=== PATIENT | male | born 1950 | race Caucasian/White ===

== ENCOUNTER 2018-03-10 11:00 | Inpatient (IN) | payer OTHER ==
[2018-03-10] MEDS: SOD CHLORIDE 0.9% 1,000 ML IV (11:32)
[2018-03-10 12:08] LABS: ADD MAN DIFF? NO
[2018-03-10 12:13] LABS: ADD UMIC YES; UR ASCORBIC ACID NEGATIVE (NEGATIVE); UR BILIRUBIN (Dip) NEGATIVE (NEGATIVE); UR BLOOD (Dip) NEGATIVE (NEGATIVE); UR CLARITY CLEAR (CLEAR); UR COLOR YELLOW (YELLOW); UR GLUCOSE (Dip) 3+ mg/dL (NEGATIVE); UR KETONES (Dip) TRACE mg/dL (NEGATIVE); UR LEUKOCYTE ESTERASE (Dip) NEGATIVE Leu/ul (NEGATIVE); UR MUCUS FEW /HPF (NONE SEEN); UR NITRITE (Dip) NEGATIVE (NEGATIVE); UR RBC 5 /HPF (0-5); UR SPECIFIC GRAVITY (Dip) 1.023 (1.003-1.030); UR TOTAL PROTEIN (Dip) 2+ mg/dl (NEGATIVE); UR UROBILINOGEN (Dip) NEGATIVE (NEGATIVE); UR WBC 1 /HPF (0-5)
[2018-03-10 12:14] LABS: WHITE BLOOD COUNT 10.2 10^3/ul (4.8-10.8)
[2018-03-10 12:14] LABS: BASOPHIL # 0.1 10^3/ul (0.0-0.1); BASOPHILS % 0.5 % (0.0-2.0); EOSINOPHILS % 0.3 % (0.0-7.0); HEMATOCRIT 35.7 % (42.0-52.0); HEMOGLOBIN 12.1 g/dl (14.0-18.0); LYMPHOCYTES # 0.9 10^3/ul (0.8-2.9); LYMPHOCYTES % 9.1 % (15.0-51.0); MEAN CORPUSCULAR HEMOGLOBIN 30.6 pg (29.0-33.0); MEAN CORPUSCULAR HGB CONC 33.9 g/dl (32.0-37.0); MEAN CORPUSCULAR VOLUME 90.4 fl (82.0-101.0); MEAN PLATELET VOLUME 9.3 fl (7.4-10.4); MONOCYTE # 0.2 10^3/ul (0.3-0.9); MONOCYTES % 2.4 % (0.0-11.0); NEUTROPHIL # 8.9 10^3/ul (1.6-7.5); NEUTROPHILS % 87.2 % (39.0-77.0); PLATELET COUNT 274 10^3/UL (140-415); RED BLOOD COUNT 3.95 10^6/ul (4.70-6.10)
[2018-03-10 12:27] LABS: ALANINE AMINOTRANSFERASE 27 IU/L (13-69); ALBUMIN 3.8 g/dl (3.3-4.9); ALBUMIN/GLOBULIN RATIO 1.22; ALKALINE PHOSPHATASE 58 IU/L (42-121); ANION GAP 13 (8-16); ASPARTATE AMINO TRANSFERASE 22 IU/L (15-46); BILIRUBIN,INDIRECT 0.6 mg/dl (0-1.1); BILIRUBIN,TOTAL 0.6 mg/dl (0.2-1.3); BLOOD UREA NITROGEN 22 mg/dl (7-20); CALCIUM 8.8 mg/dl (8.4-10.2); CARBON DIOXIDE 30 mmol/L (21-31); CHLORIDE 105 mmol/L (97-110); CREATININE 0.83 mg/dl (0.61-1.24); GLUCOSE 256 mg/dl (70-220); LIPASE 76 U/L (23-300); POTASSIUM 3.9 mmol/L (3.5-5.1); SODIUM 144 mmol/L (135-144); TOTAL PROTEIN 6.9 g/dl (6.1-8.1)
[2018-03-10] MEDS: ONDANSETRON 4 MG INJ IV ×2 (12:30→20:27)
[2018-03-10] MEDS: morphine 4 MG/ML VIAL IV (12:30)
[2018-03-10 12:39] LABS: TROPONIN-I < 0.012 ng/ml (0.00-0.12)
[2018-03-10 12:56] LABS: PROTIME 24.1 Sec (11.9-14.9); PT RATIO 1.9
[2018-03-10 12:57] LABS: PARTIAL THROMBOPLASTIN TIME 35.4 Sec (25.0-35.0)
[2018-03-10] MEDS ORDERED: MAGNESIUM HYDROXIDE 30ML CUP PO (14:30)
[2018-03-10] MEDS ORDERED: DOCUSATE SODIUM 100 MG CAP PO (14:30)
[2018-03-10] MEDS ORDERED: NITROGLYCERIN (SL) 0.4 MG TAB SL (14:30)
[2018-03-10] MEDS ORDERED: LORAZEPAM 2 MG INJ IV (14:30)
[2018-03-10] MEDS ORDERED: NACL 0.9% 3 ML SYG IV (14:30)
[2018-03-10] MEDS ORDERED: ACETAMINOPHEN 325 MG TAB PO (14:30)
[2018-03-10] MEDS ORDERED: ALBUTEROL/IPRATROPIUM (NEB) 3 ML AMP HHN (14:30)
[2018-03-10] MEDS ORDERED: HYDROCODONE/APAP (5/325) TAB PO (14:30)
[2018-03-10] MEDS ORDERED: NA PHOSPHATE/BIPHOS 133 ML ENEMA PR (14:30)
[2018-03-10] MEDS ORDERED: GLUCOSE GEL 15 GRAM TUBE BUCCAL (15:00)
[2018-03-10] MEDS ORDERED: GLUCOSE GEL 15 GRAM TUBE PO ×2 (15:00)
[2018-03-10] MEDS ORDERED: GLUCAGON 1 MG INJ IM (15:00)
[2018-03-10] MEDS ORDERED: DEXTROSE 50% 50 ML SYRINGE IV ×2 (15:00)
[2018-03-10 16:07] LABS: FREE T4 (FREE THYROXINE) 0.92 ng/dl (0.78-2.44)
[2018-03-10] MEDS: SOD CHLORIDE 0.45% 1,000 ML IV (16:32)
[2018-03-10] MEDS: INSULIN ASPART [NOVOLOG] 3 ML PEN SC ×2 (17:01→22:46)
[2018-03-10] MEDS: hydrALAzine 20 MG INJ IV (22:46)
[2018-03-10] MEDS: morphine 2 MG INJ IV (22:48)
[2018-03-11] MEDS: ACCU-CHEK XX (00:29)
[2018-03-11] MEDS: DEXAMETHASONE 4 MG/ML 1 ML INJ IV ×5 (01:01→23:42)
[2018-03-11] MEDS: INSULIN ASPART [NOVOLOG] 3 ML PEN SC ×5 (01:15→17:41)
[2018-03-11] MEDS: SOD CHLORIDE 0.45% 1,000 ML IV ×2 (03:50→17:10)
[2018-03-11 05:23] LABS: ADD MAN DIFF? NO
[2018-03-11 05:32] LABS: BASOPHILS % 0.2 % (0.0-2.0); EOSINOPHILS % 0.2 % (0.0-7.0); HEMATOCRIT 36.5 % (42.0-52.0); HEMOGLOBIN 12.2 g/dl (14.0-18.0); LYMPHOCYTES # 0.9 10^3/ul (0.8-2.9); LYMPHOCYTES % 9.8 % (15.0-51.0); MEAN CORPUSCULAR HEMOGLOBIN 30.3 pg (29.0-33.0); MEAN CORPUSCULAR HGB CONC 33.4 g/dl (32.0-37.0); MEAN CORPUSCULAR VOLUME 90.6 fl (82.0-101.0); MEAN PLATELET VOLUME 9.2 fl (7.4-10.4); MONOCYTE # 0.1 10^3/ul (0.3-0.9); MONOCYTES % 1.3 % (0.0-11.0); NEUTROPHIL # 7.7 10^3/ul (1.6-7.5); PLATELET COUNT 267 10^3/UL (140-415); RED BLOOD COUNT 4.03 10^6/ul (4.70-6.10)
[2018-03-11 05:32] LABS: WHITE BLOOD COUNT 8.8 10^3/ul (4.8-10.8)
[2018-03-11 05:50] LABS: CHOLESTEROL 160 mg/dl (100-200)
[2018-03-11 05:50] LABS: CHOL/HDL RATIO 3.8 RATIO; HDL CHOLESTEROL 42 mg/dl (30-78); LDL CHOLESTEROL,CALCULATED 103 mg/dl; TRIGLYCERIDES 75 mg/dl (0-149)
[2018-03-11 05:56] LABS: INR 1.97; PROTIME 22.9 Sec (11.9-14.9); PT RATIO 1.8
[2018-03-11 05:57] LABS: ANION GAP 10 (8-16); BLOOD UREA NITROGEN 19 mg/dl (7-20); CALCIUM 8.5 mg/dl (8.4-10.2); CARBON DIOXIDE 32 mmol/L (21-31); CHLORIDE 104 mmol/L (97-110); CREATININE 0.82 mg/dl (0.61-1.24); GLUCOSE 212 mg/dl (70-220); MAGNESIUM 1.9 mg/dl (1.7-2.5); PARTIAL THROMBOPLASTIN TIME 32.5 Sec (25.0-35.0); PHOSPHORUS 2.6 mg/dl (2.5-4.9); POTASSIUM 4.1 mmol/L (3.5-5.1); SODIUM 142 mmol/L (135-144)
[2018-03-11] MEDS: PANTOPRAZOLE 40 MG INJ IV (06:01)
[2018-03-11] MEDS: ONDANSETRON 4 MG INJ IV (08:22)
[2018-03-11] MEDS: morphine 2 MG INJ IV (08:22)
[2018-03-11] MEDS: LEVETIRACETAM 500 MG (PMX) 100 ML IVPB ×2 (08:32→20:38)
[2018-03-11 09:57] LABS: HEMOGLOBIN A1C 7.8 % (0-5.9)
[2018-03-11] MEDS: INSULIN GLARGINE [LANtus] 3 ML PEN SC (10:30)
[2018-03-11] MEDS: AMLODIPINE 5 MG TAB PO (10:59)
[2018-03-11] MEDS: WARFARIN 5 MG TAB PO (17:38)
[2018-03-11] MEDS: SOD CHLORIDE 0.9% 100 ML (18:27)
[2018-03-11] MEDS: IOHEXOL 300MG/ML 150 ML BTL (18:27)
[2018-03-11] MEDS: Insulin NOVOLOG SS MILD Algorithm (SS with meals and bedtime) SC (20:54)
[2018-03-11] MEDS: METOPROLOL 25 MG TAB PO (20:56)
[2018-03-11] MEDS ORDERED: INSULIN ASPART [NOVOLOG] 3 ML PEN SC (21:00)
[2018-03-12] MEDS: ACCUCHECK AT 2AM (Patients on SS coverage) XX (02:06)
[2018-03-12] MEDS: DEXAMETHASONE 4 MG/ML 1 ML INJ IV ×2 (05:23→12:03)
[2018-03-12] MEDS: PANTOPRAZOLE 40 MG INJ IV (05:23)
[2018-03-12 06:33] LABS: ANION GAP 14 (8-16); BLOOD UREA NITROGEN 27 mg/dl (7-20); CALCIUM 8.3 mg/dl (8.4-10.2); CARBON DIOXIDE 25 mmol/L (21-31); CHLORIDE 103 mmol/L (97-110); CREATININE 0.87 mg/dl (0.61-1.24); GLUCOSE 280 mg/dl (70-220); POTASSIUM 3.9 mmol/L (3.5-5.1); SODIUM 138 mmol/L (135-144)
[2018-03-12] MEDS: LEVETIRACETAM 500 MG (PMX) 100 ML IVPB (08:06)
[2018-03-12] MEDS: METOPROLOL 25 MG TAB PO (08:09)
[2018-03-12] MEDS: AMLODIPINE 5 MG TAB PO (08:09)
[2018-03-12] MEDS: Insulin NOVOLOG SS MILD Algorithm (SS with meals and bedtime) SC ×2 (08:13→12:04)
[2018-03-12] MEDS: INSULIN GLARGINE [LANtus] 3 ML PEN SC (08:26)
== END 2018-03-12 14:10 | disposition home or self-care (01) | DRG 54 ==
LOC: MS2 03-11 12:10 → E/R 11:00 → ICU 12:43
PROVIDERS: Hospitalist
DX: D32.0 Benign neoplasm of cerebral meninges (principal); G93.6 Cerebral edema; E09.9 Drug or chemical induced diabetes mellitus without complications; E08.9 Diabetes mellitus due to underlying condition without complications; I10 Essential (primary) hypertension; Z79.01 Long term (current) use of anticoagulants
CPT/HCPCS: 36415; 70450; 70551; 71045; 71260; 74176; 80048; 80053; 80061; 81001; 82962; 83036; 83690; 83735; 84100; 84439; 84443; 84484; 85025; 85610; 85730; 87081; 93005; 96372; 96374; 96375; 97116; 97161; 99291-25

== ENCOUNTER 2018-12-03 14:27 | Inpatient (IN) | payer OTHER ==
[2018-12-03 15:04] LABS: ADD MAN DIFF? NO
[2018-12-03 15:06] LABS: BASOPHIL # 0.1 10^3/ul (0.0-0.1); BASOPHILS % 0.4 % (0.0-2.0); EOSINOPHILS # 0.1 10^3/ul (0.0-0.5); EOSINOPHILS % 1.2 % (0.0-7.0); HEMATOCRIT 40.1 % (42.0-52.0); HEMOGLOBIN 13.4 g/dl (14.0-18.0); LYMPHOCYTES # 1.5 10^3/ul (0.8-2.9); LYMPHOCYTES % 13.4 % (15.0-51.0); MEAN CORPUSCULAR HEMOGLOBIN 29.2 pg (29.0-33.0); MEAN CORPUSCULAR HGB CONC 33.4 g/dl (32.0-37.0); MEAN CORPUSCULAR VOLUME 87.4 fl (82.0-101.0); MEAN PLATELET VOLUME 8.9 fl (7.4-10.4); MONOCYTE # 0.4 10^3/ul (0.3-0.9); MONOCYTES % 3.6 % (0.0-11.0); NEUTROPHIL # 9.1 10^3/ul (1.6-7.5); NEUTROPHILS % 81.1 % (39.0-77.0); PLATELET COUNT 320 10^3/UL (140-415); RED BLOOD COUNT 4.59 10^6/ul (4.70-6.10); RED CELL DISTRIBUTION WIDTH 12.1 % (11.5-14.5)
[2018-12-03 15:06] LABS: WHITE BLOOD COUNT 11.2 10^3/ul (4.8-10.8)
[2018-12-03] MEDS: SOD CHLORIDE 0.9% 500 ML IV (15:07)
[2018-12-03] MEDS: ACETAMINOPHEN 500 MG TAB PO (15:07)
[2018-12-03 15:22] LABS: ANION GAP 11 (5-13); BLOOD UREA NITROGEN 25 mg/dl (7-20); CARBON DIOXIDE 32 mmol/L (21-31); CHLORIDE 98 mmol/L (97-110); CREATININE 1.05 mg/dl (0.61-1.24); Estimated GFR > 60 mL/min (>60); GLUCOSE 294 mg/dl (70-220); POTASSIUM 4.5 mmol/L (3.5-5.1); SODIUM 141 mmol/L (135-144)
[2018-12-03 15:25] LABS: INR 0.85; PROTIME 11.7 Sec (11.9-14.9); PT RATIO 0.9
[2018-12-03 15:26] LABS: PARTIAL THROMBOPLASTIN TIME 24.5 Sec (23.0-35.0)
[2018-12-03] MEDS ORDERED: ONDANSETRON 4 MG INJ IV (16:00)
[2018-12-03] MEDS ORDERED: ACETAMINOPHEN 325 MG TAB PO ×2 (16:00→16:30)
[2018-12-03] MEDS ORDERED: NACL 0.9% 3 ML SYG IV (16:30)
[2018-12-03] MEDS ORDERED: morphine 2 MG INJ IV (16:30)
[2018-12-03] MEDS ORDERED: DOCUSATE SODIUM 100 MG CAP PO (16:30)
[2018-12-03] MEDS ORDERED: ZOLPIDEM 5 MG TAB PO (16:30)
[2018-12-03] MEDS ORDERED: DEXTROSE 50% 50 ML SYRINGE IV ×2 (17:30)
[2018-12-03] MEDS ORDERED: GLUCOSE GEL 15 GRAM TUBE BUCCAL (17:30)
[2018-12-03] MEDS ORDERED: GLUCOSE GEL 15 GRAM TUBE PO ×2 (17:30)
[2018-12-03] MEDS ORDERED: GLUCAGON 1 MG INJ IM (17:30)
[2018-12-03] MEDS: INSULIN ASPART [NOVOLOG] 3 ML PEN SC ×2 (18:17→20:26)
[2018-12-03] MEDS: HYDROCODONE/APAP (5/325) TAB PO (19:48)
[2018-12-03] MEDS: hydrALAzine 20 MG INJ IV (19:48)
[2018-12-03] MEDS ORDERED: LORAZEPAM 2 MG INJ (21:49)
[2018-12-03] MEDS: LORAZEPAM 2 MG INJ IV (21:54)
[2018-12-04] MEDS: ACCU-CHEK XX (02:38)
[2018-12-04 06:08] LABS: ADD MAN DIFF? NO
[2018-12-04 06:10] LABS: WHITE BLOOD COUNT 7.5 10^3/ul (4.8-10.8)
[2018-12-04 06:10] LABS: BASOPHILS % 0.4 % (0.0-2.0); EOSINOPHILS # 0.2 10^3/ul (0.0-0.5); EOSINOPHILS % 2.5 % (0.0-7.0); HEMATOCRIT 34.1 % (42.0-52.0); HEMOGLOBIN 11.4 g/dl (14.0-18.0); LYMPHOCYTES # 1.6 10^3/ul (0.8-2.9); LYMPHOCYTES % 20.8 % (15.0-51.0); MEAN CORPUSCULAR HEMOGLOBIN 29.4 pg (29.0-33.0); MEAN CORPUSCULAR HGB CONC 33.4 g/dl (32.0-37.0); MEAN CORPUSCULAR VOLUME 87.9 fl (82.0-101.0); MEAN PLATELET VOLUME 9.6 fl (7.4-10.4); MONOCYTE # 0.4 10^3/ul (0.3-0.9); MONOCYTES % 5.3 % (0.0-11.0); NEUTROPHIL # 5.3 10^3/ul (1.6-7.5); NEUTROPHILS % 70.6 % (39.0-77.0); PLATELET COUNT 274 10^3/UL (140-415); RED BLOOD COUNT 3.88 10^6/ul (4.70-6.10); RED CELL DISTRIBUTION WIDTH 12.2 % (11.5-14.5)
[2018-12-04 06:51] LABS: ANION GAP 2 (5-13); BLOOD UREA NITROGEN 29 mg/dl (7-20); CARBON DIOXIDE 30 mmol/L (21-31); CHLORIDE 105 mmol/L (97-110); CREATININE 1.18 mg/dl (0.61-1.24); Estimated GFR > 60 mL/min (>60); GLUCOSE 270 mg/dl (70-220); PHOSPHORUS 3.6 mg/dl (2.5-4.9); POTASSIUM 4.3 mmol/L (3.5-5.1); SODIUM 137 mmol/L (135-144)
[2018-12-04] MEDS: INSULIN ASPART [NOVOLOG] 3 ML PEN SC ×3 (07:55→11:51)
[2018-12-04] MEDS: HYDROCODONE/APAP (5/325) TAB PO (11:55)
[2018-12-04] MEDS: ONDANSETRON 4 MG INJ IV (11:59)
[2018-12-04] MEDS: morphine SULFATE/PF (2 MG/2 ML) SYG IV (12:08)
[2018-12-04] MEDS: INSULIN GLARGINE [LANTus] (100 UNITS/ML) SYG SC (12:13)
[2018-12-04] MEDS: DEXAMETHASONE 4 MG TAB PO (15:37)
== END 2018-12-04 16:53 | disposition home or self-care (01) | DRG 55 ==
LOC: E/R 14:27 → 6WM 16:00
DX: D32.0 Benign neoplasm of cerebral meninges (principal); E11.9 Type 2 diabetes mellitus without complications; R11.2 Nausea with vomiting, unspecified; R42 Dizziness and giddiness; Z79.01 Long term (current) use of anticoagulants; Z86.718 Personal history of other venous thrombosis and embolism; Z79.4 Long term (current) use of insulin
CPT/HCPCS: 36415; 70450; 70553; 80048; 82962; 83036; 83735; 84100; 85025; 85610; 85730; 93005; 99285-25